=== PATIENT | female | born 1960 | race African-American/Black ===

== ENCOUNTER 2016-12-28 13:22 | Emergency (ER) | payer OTHER ==
[~2016-12-28] VITALS: Ht 165.1 cm; Wt 66.2 kg
[~2016-12-28 13:22] MED LIST: ENDOCET; HYDR-2296; HYDR-2470 PO; IBUP-1969 PO; [UNRECOGNIZED DRUG - CODE] PO
[2016-12-28 13:39] VITALS: BP 172/104; PULSE 67; RESP 18; TEMP 98.3; O2SAT 98
--- NOTE | 2016-12-28 13:48 | NUR ---
Patient to ER bed 07 to gown for evaluation. Side rails up. Report given to Adelaida
--- NOTE | 2016-12-28 14:08 | NUR ---
ER at bedside examining patient.
--- NOTE | 2016-12-28 14:08 | NUR ---
Dr Brown at bedside examining patient
[2016-12-28] MEDS ORDERED: DIPHENHYDRAMINE INJ 50 MG/ML VIAL IVP ONE (14:30)
[2016-12-28] MEDS ORDERED: HYDROmorphone 1 MG INJ. 1 MG/ML AMPUL IVP ONE (14:30)
[2016-12-28] MEDS ORDERED: KETOROLAC TROMETHAMINE 30 MG VIAL IVP ONE (14:30)
--- NOTE | 2016-12-28 14:30 | NUR ---
IV SITE INSERTION TO LEFT AC 22G X 1 ATTEMPT, TOLERATED WELL
[2016-12-28] MEDS ORDERED: KETOROLAC TROMETHAMINE 30 MG VIAL ONE (14:46)
--- NOTE | 2016-12-28 14:48 | NUR ---
TAKEN TO XRAY DEPT FOR KUB.
--- NOTE | 2016-12-28 14:56 | NUR ---
PT RETURNED TO ROOM 7.
--- NOTE | 2016-12-28 15:08 | NUR ---
MEDS GIVEN , PER ORDERED BY M.Brant TOLERATED WELL
[2016-12-28 15:29] LABS: BILIRUBIN,URINE NEGATIVE (NEGATIVE); CLARITY/URINE CLEAR (CLEAR); COLOR,URINE YELLOW (YELLOW); GLUCOSE,URINE NEGATIVE (NEGATIVE); KETONES,URINE NEGATIVE (NEGATIVE); LEUKOCYTE ESTERASE ,URINE NEGATIVE (NEGATIVE); NITRITE, URINE NEGATIVE (NEGATIVE); PROTEIN URINE TRACE (NEGATIVE); UROBILINOGEN,URINE 0.2 (0.2-1.0)
[2016-12-28 15:31] LABS: BLOOD, URINE TRACE (NEGATIVE)
[2016-12-28 15:57] VITALS: BP 142/86; PULSE 68; RESP 19; TEMP 98.2; O2SAT 99
--- NOTE | 2016-12-28 15:57 | NUR ---
Patient given written and verbal discharge instructions and verbalizes understanding. ER MD discussed with patient the results and treatment provided. Patient in stable condition. ID arm band removed. No Rx given. Patient educated on pain management and to follow up with PMD in 48 hours. Pain Scale 0/10 Opportunity for questions provided and answered.
[2016-12-28 15:58] LABS: BACTERIA,URINE FEW /HPF (None Seen); MUCUS,URINE 3+ /LPF (None Seen)
== END 2016-12-28 15:57 | disposition home or self-care (01) ==
LOC: SED 13:22
DX: M54.5 Low back pain (principal); M25.562 Pain in left knee
CPT/HCPCS: 74000; 81000; 96374; 96375; 99285; J1170; J1200; J1885

== ENCOUNTER 2021-06-05 06:13 | Day surgery (SDC) | payer BC, SELFPAY ==
[2021-06-02 11:41] LABS: BILIRUBIN,URINE NEGATIVE (NEGATIVE); CLARITY/URINE CLEAR (CLEAR); COLOR,URINE YELLOW (YELLOW); GLUCOSE,URINE NEGATIVE (NEGATIVE); KETONES,URINE NEGATIVE (NEGATIVE); LEUKOCYTE ESTERASE ,URINE NEGATIVE (NEGATIVE); NITRITE, URINE NEGATIVE (NEGATIVE); PROTEIN URINE NEGATIVE (NEGATIVE); UROBILINOGEN,URINE 0.2 (0.2-1.0)
[2021-06-02 11:41] LABS: BASOPHILS % (AUTO) 0.6 % (0.0-2.0); EOSINOPHILS # (AUTO) 0.1 K/uL (0.0-0.4); EOSINOPHILS % (AUTO) 0.8 % (0.0-4.0); HEMATOCRIT 37.5 % (36-48); HEMOGLOBIN 12.2 g/dL (12.0-16.0); LYMPHOCYTES # (AUTO) 1.7 K/uL (1.0-5.5); LYMPHOCYTES % (AUTO) 24.9 % (20.5-51.5); MEAN CORPUSCULAR HEMOGLOBIN 27 pg (27-31); MEAN CORPUSCULAR HGB CONC 32 % (32-36); MEAN CORPUSCULAR VOLUME 84 fL (79.0-98.0); MONOCYTES # (AUTO) 0.4 K/uL (0.0-1.0); MONOCYTES % (AUTO) 5.7 % (1.7-9.3); NEUTROPHILS # (AUTO) 4.8 K/uL (1.8-7.7); PLATELET COUNT (AUTO) 150 K/uL (130-430); RED BLOOD CELL COUNT(AUTO) 4.45 MIL/uL (4.2-6.2); RED CELL DISTRIBUTION WIDTH 13.8 % (9.0-15.0)
[2021-06-02 12:17] LABS: BLOOD, URINE TRACE (NEGATIVE)
[2021-06-02 12:18] LABS: BACTERIA,URINE RARE /HPF (None Seen); WBC,URINE 0-3 /HPF (0-3)
[~2021-06-05] VITALS: Ht 165.1 cm; Wt 68.0 kg
[~2021-06-05 06:13] MED LIST changes: -HYDR-2296; -HYDR-2470 PO; -[UNRECOGNIZED DRUG - CODE] PO
[2021-06-05] MEDS ORDERED: HYDROcodone/ACETAMIN 5-325 MG TAB (NORCO/ VICODIN) PO PRN (08:15)
[2021-06-05] MEDS ORDERED: METOCLOPRAMIDE HCL 10 MG/2 ML VIAL IVP PRN (08:15)
[2021-06-05] MEDS ORDERED: KETOROLAC TROMETHAMINE 30 MG VIAL IVP PRN (08:15)
[2021-06-05] MEDS ORDERED: OXYCODONE/ACETAMINOPHEN 5-325 TABLET PO PRN ×2 (08:15)
[2021-06-05] MEDS ORDERED: HYDROmorphone 1 MG/ML INJ. CARTRIDGE IVP PRN (08:15)
[2021-06-05] MEDS ORDERED: ONDANSETRON HCL 4 MG/2 ML VIAL IVP PRN (08:15)
[2021-06-05] MEDS ORDERED: HYDROmorphone 1 MG/ML INJ. CARTRIDGE IVP ONE ×4 (08:38→09:45)
[2021-06-05] MEDS ORDERED: NS 1000 ML IV.SOLN IV ONE (08:40)
[2021-06-05] MEDS ORDERED: ONDANSETRON HCL 4 MG/2 ML VIAL ONE (08:40)
[2021-06-05] MEDS ORDERED: NS IRRIG SOLN 1000 ML IR ONE (08:40)
[2021-06-05] MEDS ORDERED: PROPOFOL 200MG/ 20ML VIAL (DIPRIVAN) IV ONE (08:40)
[2021-06-05] MEDS ORDERED: SEVOFLURANE 15 MIN GAS INH ONE (08:40)
[2021-06-05] MEDS ORDERED: LR 1,000 ML IV.SOLN IV ONE (08:40)
[2021-06-05] MEDS ORDERED: KETOROLAC TROMETHAMINE 30 MG VIAL ONE (08:40)
[2021-06-05] MEDS ORDERED: CEFAZOLIN 1 GM IVPB PREMIX 50 ML IV ONE (08:40)
[2021-06-05] MEDS ORDERED: fentaNYL CITRATE/PF 100 MCG/2 ML AMP ONE (08:40)
[2021-06-05] MEDS ORDERED: MIDAZOLAM HCL 5 MG/ML VIAL (VERSED) IV ONE (08:40)
[2021-06-05] MEDS ORDERED: HYDROmorphone 1 MG/ML INJ. CARTRIDGE ONE ×2 (08:41→08:58)
[2021-06-05 12:00] VITALS: BP_SYST 115
== END 2021-06-05 11:10 | disposition home or self-care (01) ==
LOC: SDS 06:13 → SMU 06:14 → SDS 11:10
PROVIDERS: ATTEND Specialist
DX: N95.0 Postmenopausal bleeding (principal); R10.2 Pelvic and perineal pain; I10 Essential (primary) hypertension; N94.6 Dysmenorrhea, unspecified; Z98.890 Other specified postprocedural states; Z20.822 Contact with and (suspected) exposure to COVID-19; Z79.899 Other long term (current) drug therapy
CPT/HCPCS: 36415; 58562; 71046; 81000; 84703; 85025; 87086; 88300; 88305; 93005; J0690; J1170; J1885; J2250; J2405; J2704; J3010; J7030; J7120; U0003